=== PATIENT | male | born 1995 | race Caucasian/White ===

== ENCOUNTER 2019-05-25 21:12 | Emergency (ER) | payer BC ==
[2019-05-25] MEDS ORDERED: Famotidine 20 MG/2 ML SDV IVPUSH ONE (21:30)
[2019-05-25] MEDS ORDERED: Sodium Chloride 0.9% 10 ML Syringe FLUSH PRN (21:30)
[2019-05-25] MEDS ORDERED: EPINEPHrine 1 MG/ML SDV IM ONE (21:30)
[2019-05-25] MEDS ORDERED: diphenhydrAMINE 50 MG Cap PO ONE (21:30)
[2019-05-25] MEDS ORDERED: methylPREDNISolone Sodium Succinate 125 MG/2 ML SDV IVPUSH ONE (21:30)
--- NOTE | 2019-05-25 22:14 | EDM.PDOC ---
ED HPI GENERAL MEDICAL PROBLEM - General Chief Complaint: Allergic Reaction Stated Complaint: ALERGIC REACTION FACE SWELLING AND RED Time Seen by Provider: 05/25/19 21:23 Source of Information: Reports: Patient, RN Notes Reviewed - History of Present Illness INITIAL COMMENTS - FREE TEXT/NARRATIVE: 24-year-old male presents to the ED with quite severe allergic rash that started about one hour prior to presentation to the ED. About one hour ago he had onset of hives and erythema face neck chest and upper back. There is some itchiness associated with that. Very mild fullness of the throat area but no severe difficulty breathing. No hx of prior allergies. He has been eating [employer] food but nothing super unusual or out of the ordinary. He states he has had all of the various foods he had previously without difficulty. One difference is that there was a fair amount of cilantro with one of the pinwheel type appetizers which he has not had before. He put some Benadryl cream on his face but has not taken oral Benadryl or any other medication. He also has had a moderate amount of alcohol today. - Related Data Allergies Allergy/AdvReac Type Severity Reaction Status Date / Time No Known Allergies Allergy Verified 05/25/19 21:23 Home Meds: Home Meds . [No Known Home Meds] 05/25/19 [History] Past Medical History - Past Health History Medical/Surgical History: Denies Medical/Surgical History - Past Surgical History Musculoskeletal Surgical History: Reports: Shoulder Surgery Social & Family History - Family History Family Medical History: Noncontributory - Tobacco Use Second Hand Smoke Exposure: No - Caffeine Use Caffeine Use: Reports: Coffee - Alcohol Use Days Per Week of Alcohol Use: 2 Number of Drinks Per Day: 4 Total Drinks Per Week: 8 - Recreational Drug Use Recreational Drug Use: No ED ROS ALLERGIC REACTION - Review of Systems Review Of Systems: See Below Constitutional: Denies: Fever, Chills HEENT: Denies: Throat Pain Respiratory: Reports: Shortness of Breath Cardiovascular: Denies: Chest Pain (Mild no better) GI/Abdominal: Denies: Nausea, Vomiting Musculoskeletal: Reports: No Symptoms Skin: Reports: Rash, Erythema ED EXAM GENERAL NO PERIP PULSE - Physical Exam Exam: See Below General Appearance: Alert, No Apparent Distress Eye Exam: Bilateral Eye: PERRL Nose: Normal Inspection Throat/Mouth: Normal Inspection, Normal Oropharynx Head: No: Facial Swelling Neck: Supple Respiratory/Chest: No Respiratory Distress, Lungs Clear, Normal Breath Sounds. No: Rhonchi, Wheezing Cardiovascular: Regular Rate, Rhythm Neurological: Alert, Oriented, No Motor/Sensory Deficits Skin Exam: Warm, Dry, Erythema (Quite severe diffuse intense erythema of his face and upper neck), Rash Course - Vital Signs Text/Narrative:: We did treat with Solu-Medrol 125 mg IV, 50 mg oral Benadryl, epi 3 mils 1 1000 IM. With that over the next 30-45 minutes hives completely cleared. Discharge instr. as documented. Last Recorded V/S: Last Vital Signs Temp 97.1 F 05/25/19 21: Pulse 95 05/25/19 21:19 Resp 19 05/25/19 22:28 BP 134/62 05/25/19 22:28 Pulse Ox 96 05/25/19 22:28 - Orders/Labs/Meds Orders: Active Orders 24 hr Category Date Time Status Peripheral IV Care [RC] . DIRECTED Care 05/25/19 21:31 Active Sodium Chloride 0.9% [Saline Flush] Med 05/25/19 21:30 Active 10 ml FLUSH ASDIRECTED PRN Peripheral IV Insertion Adult [OM.PC] Stat Oth 05/25/19 21:30 Ordered Medication Orders Sodium Chloride (Saline Flush) 10 ml FLUSH ASDIRECTED PRN PRN Reason: Keep Vein Open Last Admin: 05/25/19 21:37 Dose: 10 ml Meds: Medications Generic Name Dose Route Start Last Admin Trade Name Freq PRN Reason Stop Dose Admin Sodium Chloride 10 ml 05/25/19 21:30 05/25/19 21:37 Saline Flush FLUSH 10 ml ASDIRECTED PRN Administration Keep Vein Open Discontinued Medications Generic Name Dose Route Start Last Admin Trade Name Freq PRN Reason Stop Dose Admin Diphenhydramine HCl 50 mg 05/25/19 21:30 05/25/19 21:37 Benadryl PO 05/25/19 21:31 50 mg ONETIME ONE Administration Epinephrine HCl 0.3 mg 05/25/19 21:30 05/25/19 21:37 Adrenalin IM 05/25/19 21:31 0.3 mg ONETIME ONE Administration Famotidine 20 mg 05/25/19 21:30 05/25/19 21:37 Pepcid IVPUSH 05/25/19 21:31 20 mg ONETIME ONE Administration Methylprednisolone Sodium Succinate 125 mg 05/25/19 21:30 05/25/19 21:37 Solu-Medrol IVPUSH 05/25/19 21:31 125 mg ONETIME ONE Administration Departure - Departure Time of Disposition: 22:13 Disposition: Home, Self-Care 01 Condition: Fair Clinical Impression: Allergic urticaria - Discharge Information Instructions: Hives, [id number] Referrals: Lupe Cervantes PA [Primary Care Provider] - Forms: ED Department Discharge Additional Instructions: It is possible that the hives could come and go over the next 12-24 hours. Return you can continue Benadryl 50 mg every 6-8 hours as needed or take Claritin 10 mg daily for the next 2 or 3 days. If you develop any breathing difficulty or symptoms otherwise worsening return to the ED as needed. Sepsis Event Note - Evaluation Sepsis Screening Result: No Definite Risk - Focused Exam Vital Signs: Vital Signs Temp Pulse Resp BP Pulse Ox 05/25/19 22:28 19 134/62 96 05/25/19 21:19 97.1 F 95 19 148/86 H 96 Date Exam was Performed: 05/25/19 Time Exam was Performed: 22:38 - My Orders Last 24 Hours: My Active Orders 05/25/19 21:30 Sodium Chloride 0.9% [Saline Flush] 10 ml FLUSH ASDIRECTED PRN Peripheral IV Insertion Adult [OM.PC] Stat 05/25/19 21:31 Peripheral IV Care [RC] . DIRECTED - Assessment/Plan Last 24 Hours: My Active Orders 05/25/19 21:30 Sodium Chloride 0.9% [Saline Flush] 10 ml FLUSH ASDIRECTED PRN Peripheral IV Insertion Adult [OM.PC] Stat 05/25/19 21:31 Peripheral IV Care [RC] . DIRECTED
== END 2019-05-25 22:28 | disposition home or self-care (01) ==
LOC: JD.ED 21:12
DX: L50.0 Allergic urticaria (principal)
CPT/HCPCS: 96372; 96374; 96375; 99283; A9270; J0171; J2930; J3490